=== PATIENT | female | born 1960 | race Caucasian/White ===

== ENCOUNTER 2019-05-05 07:47 | Outpatient (REF) | payer OTHER, SELFPAY ==
[2019-05-05 12:56] LABS: Chol HDL Ratio 5.03 mg/dL (0.0-4.40); Cholesterol 201 mg/dL (0-200); Glucose 87 mg/dL (65-115); HDL Cholesterol 40 mg/dL (60-100); LDL Cholesterol Calculated 119 mg/dL (50-129); LDL HDL Ratio 2.98 RATIO (0.00-3.22); Thyroid Stimulating Hormone 1.15 uIU/mL (0.27-4.20); Triglycerides 211 mg/dL (0-150)
[2019-05-05 13:20] LABS: Estmated Average Glucose 137; Hemoglobin A1C 6.4 % (4.0-6.0)
== END 2019-05-05 07:48 | disposition home or self-care (01) ==
LOC: LAB 07:47
PROVIDERS: Family Provider Family Medicine; PCP Family Medicine; Visit Provider Dermatology
DX: Z01.89 Encounter for other specified special examinations (principal)
CPT/HCPCS: 80061; 82947; 83036; 84443

== ENCOUNTER 2019-09-22 15:43 | Outpatient (CLI) | payer OTHER, SELFPAY ==
--- NOTE | 2019-09-22 | US_ITS ---
WS: [id number] THYROID ULTRASOUND HISTORY: LUMP, ANT NECK COMPARISON: None available. Right lobe: 4.6 cm x 1.5 cm x 1.5 cm. Volume: 5.6 cm3. Normal size and echotexture. No significant are dominant nodules are present. Left lobe: 4.6 cm x 1.7 cm x 1.5 cm. Volume: 6.4 cm3. Normal size gland. There are several hypoechoic nodules within the gland. The largest in the upper po le measures 1.3 x 0.8 cm. Nonspecific. No calcifications. No shadowing. Isthmus: 0.2 cm. US/US soft tissue head neck [id number] IMPRESSION: Indeterminate LEFT thyroid nodules. Recommend follow-up ultrasound in 6-12 josé miguel hs to document stability or change.
== END 2019-09-22 15:44 | disposition home or self-care (01) ==
LOC: US 15:45
PROVIDERS: Family Provider Family Medicine; PCP Family Medicine; Visit Provider Registered Nurse
DX: R22.1 Localized swelling, mass and lump, neck (principal); E04.2 Nontoxic multinodular goiter
CPT/HCPCS: 76536

== ENCOUNTER → 2019-11-30 07:54 | Outpatient (BNVA) | payer OTHER, SELFPAY | PROVIDERS: Family Provider Family Medicine; PCP Family Medicine; Referring Provider Registered Nurse; Visit Provider Internal Medicine | DX: E04.2 Nontoxic multinodular goiter (principal); I47.1 Supraventricular tachycardia | CPT/HCPCS: 99203 ==

== ENCOUNTER 2020-06-09 10:21 | Emergency (ER) | payer OTHER, SELFPAY ==
--- NOTE | 2020-06-09 10:22 | XRR_ITS ---
PROCEDURE INFORMATION: Exam: XR Chest Exam date and time: 06/09/2020 10:40 AM Age: 60 years old Clinical indication: Chest pain; Additional info: Cp TECHNIQUE: Imaging protocol: XR of the chest Views: 1 view. COMPARISON: CR Chest 1 [place] [id number] 08/14/2017 10:52 AM FINDINGS: Lungs: There is a small benign calcified granuloma in the right upper lobe. Otherwise the lungs are clear with no pneumonia. Pleural spaces: Unremarkable. No pleural effusion. No pneumothorax. Heart/Mediastinum: Unremarkable. No cardiomegaly. Bones/joints: Unremarkable. XR/XR chest 1V portable [id number] IMPRESSION: No acute findings.
--- NOTE | 2020-06-09 10:23 | ECG_ITS ---
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 Measurements Intervals Epps Rate: 86 P: 74 UT: 171 QRS: 50 QRSD: 86 T: 23 QT: 369 QTc: 443 Interpretive Statements SINUS RHYTHM POSSIBLE LEFT ATRIAL ENLARGEMENT [-0.1mV P WAVE IN V1/V2] SEPTAL MYOCARDIAL INFARCTION , OF INDETERMINATE AGE [40+ ms Q WAVE IN V1/V2] Compared to ECG 08/14/2017 13:12:37 Myocardial infarct finding now present T-wave abnormality no longer present Electronically Signed On 06-09-2020 22:42:37 CDT by Glenna Du M.D. [id number] [email or web address]
[2020-06-09 10:24] VITALS: BP 175/115; PULSE 88; RESP 22; TEMP 36.4; O2SAT 100; BMI 27.0
--- NOTE | 2020-06-09 10:35 | ED_ITS ---
Documented by User: Mg Barth MD 06/09/20 10:42 HPI - Chest Pain General: Chief Complaint: Chest Pain Stated Complaint: chest pain, L arm pain Time Seen by Provider: 06/09/20 10:22 Source: patient Mode of arrival: ambulatory Limitations: no limitations History of Present Illness: HPI narrative: 60-year-old female who states the last 2 days she has been having left-sided chest pain that radiates into her left jaw and her left arm. She states it got much worse this morning. States she has been under some increased stress as well. She had some mild shortness of breath. She denies any worsening improving factors. States her pain is currently a 2 out of 10 but was much worse earlier this morning. She is a history of high blood pressure and high cholesterol. She states she had a stress test 2 years ago and that was the last one she had and it was normal back then. Associated symptoms: Deny abdominal pain, dyspnea, fever(s), nausea or vomiting Review of Systems Const: Denies: fever(s), chills, body aches or change in appetite Eyes: Denies: blurry vision or eye discomfort ENMT: Denies: throat pain or dental pain Card: Reports: chest pain Resp: Denies: dyspnea GI: Denies: abdominal pain, nausea, vomiting or diarrhea : Denies: dysuria Musc: Denies: neck pain or back pain Skin/Breast: Denies: rash Neuro: Denies: headache(s) Psych: Denies: depression Ronald/Lymph: Denies: easy bruising All/Imm: Denies: urticaria PFSH ED PFSH: Medical History (Updated 06/09/20 @ 13:34 by Taqueria Boyer DO) Chest pain HTN (hypertension) SVT (supraventricular tachycardia) Family History Father CAD (coronary artery disease) Other Cancer Social History Smoking and tobacco status: never smoked Alcohol intake: never Physical Exam Const: COMMON NORMALS: no acute distress, patient oriented x3 and healthy appearing HENMT: COMMON NORMALS: normocephalic and atraumatic HEAD & SCALP: normocephalic and atraumatic Eye: COMMON NORMALS: Equal, round and reactive pupils present and EOMs intact bilaterally PUPIL: Yes Equal, round and reactive pupils present Neck/C-Spine: COMMON NORMALS: full ROM and supple Chest: COMMONS NORMALS: normal inspection of the chest and normal palpation of entire chest wall Resp: COMMON NORMALS: normal respiratory effort, No retractions, No use of accessory muscles and clear to auscultation bilaterally AUSCULTATION: clear to auscultation bilaterally Cardio: COMMON NORMALS: regular rate, regular rhythm and No murmurs present (Cardio) RATE: regular rate RHYTHM: regular rhythm GI: COMMON NORMALS: Normal to inspection, nondistended, normoactive bowel sounds present, Soft to palpation, non-tender and no masses PALPATION: Yes Soft to palpation Extremity: COMMON NORMALS: normal to inspection and full ROM Neuro: COMMON NORMALS: patient oriented x3, moves all extremities and no focal motor deficits Psych: COMMON NORMALS: mental status grossly normal, Normal thought process present and cooperative THOUGHT PROCESS: Normal thought process present Skin: COMMON NORMALS: no rashes or lesions noted and no wounds GENERAL SKIN EXAM: no rashes or lesions noted Course Vital Signs: Vital signs: Vital Signs Temperature 97.5 F L 06/09/20 10:24 Pulse Rate 70 06/09/20 13:45 Respiratory Rate 15 06/09/20 13:45 Blood Pressure 104/77 06/09/20 13:45 Pulse Oximetry 94 06/09/20 13:45 MDM - Chest Pain Lab Data: Labs: Lab Results 06/09/20 06/09/20 06/09/20 Range/Units 10:40 10:40 10:40 WBC 6.8 (4.0-10.0) 10^3/ uL RBC 5.35 H (4.1-5.3) 10^6/u L Hgb 15.9 H (11.5-15.3) g/dL Hct 49.1 H (37.0-47.0) % MCV 91.8 (81-99) fL MCH 29.7 (28.0-34.0) pg MCHC 32.4 (30.0-36.0) g/dL RDW 12.5 (12.1-15.1) % Plt Count 194 (130-400) 10^3/c mm MPV 12.0 H (7.4-10.4) fL Neut % (Auto) 71.4 % Lymph % (Auto) 19.1 % Hardin % (Auto) 6.8 % Eos % (Auto) 1.8 % Baso % (Auto) 0.6 % Neut # (Auto) 4.84 (1.8-7.7) 10^3/u L Lymph # (Auto) 1.3 (0.8-4.8) 10^3/u L Hardin # (Auto) 0.5 (0.2-0.9) 10^3/u L Eos # (Auto) 0.1 (0.0-0.8) 10^3/u L Baso # (Auto) 0.0 (0.0-0.1) 10^3/u L Nucleated RBC % (a uto) 0 % Nucleated RBCs # 0.0 /100WBC D-Dimer (0-0.59) ug/mIFE U Sodium 139 (136-145) mmol/L Potassium 3.6 (3.5-5.1) mmol/L Chloride 99 (98-107) mmol/L Carbon Dioxide 24 (22-29) mmol/L Anion Gap 19.6 H (5-19) BUN 26 H (8-23) mg/dL Creatinine 0.7 (0.5-0.9) mg/dL GFR Calculation 85.1 L (90-130) mL/min Glucose 93 (65-115) mg/dL Calculated Osmolal ity 292 (285-295) mOsm/k g Calcium 9.7 (8.5-10.5) mg/dL Total Bilirubin 0.6 (0.15-1.2) mg/dL AST 20 (0-32) U/L ALT 16 (0-33) U/L Alkaline Phosphata se 98 (35-105) IU/L Troponin T Baselin e 6 (0-10) ng/L Troponin T 120 Min [place] (0-10) ng/L Delta Troponin T (0-10) ABS# Total Protein 7.6 (6.6-8.7) g/dL Albumin 4.7 (3.5-5.2) g/dL Globulin 2.9 (1.3-4.6) g/dL 06/09/20 06/09/20 Range/Units 12:14 12:32 WBC (4.0-10.0) 10^3/ uL RBC (4.1-5.3) 10^6/u L Hgb (11.5-15.3) g/dL Hct (37.0-47.0) % MCV (81-99) fL MCH (28.0-34.0) pg MCHC (30.0-36.0) g/dL RDW (12.1-15.1) % Plt Count (130-400) 10^3/c mm MPV (7.4-10.4) fL Neut % (Auto) % Lymph % (Auto) % Hardin % (Auto) % Eos % (Auto) % Baso % (Auto) % Neut # (Auto) (1.8-7.7) 10^3/u L Lymph # (Auto) (0.8-4.8) 10^3/u L Hardin # (Auto) (0.2-0.9) 10^3/u L Eos # (Auto) (0.0-0.8) 10^3/u L Baso # (Auto) (0.0-0.1) 10^3/u L Nucleated RBC % (a uto) % Nucleated RBCs # /100WBC D-Dimer <= 0.27 (0-0.59) ug/mIFE U Sodium (136-145) mmol/L Potassium (3.5-5.1) mmol/L Chloride (98-107) mmol/L Carbon Dioxide (22-29) mmol/L Anion Gap (5-19) BUN (8-23) mg/dL Creatinine (0.5-0.9) mg/dL GFR Calculation (90-130) mL/min Glucose (65-115) mg/dL Calculated Osmolal ity (285-295) mOsm/k g Calcium (8.5-10.5) mg/dL Total Bilirubin (0.15-1.2) mg/dL AST (0-32) U/L ALT (0-33) U/L Alkaline Phosphata se (35-105) IU/L Troponin T Baselin e (0-10) ng/L Troponin T 120 Min [place] 6.00 (0-10) ng/L Delta Troponin T 0 (0-10) ABS# Total Protein (6.6-8.7) g/dL Albumin (3.5-5.2) g/dL Globulin (1.3-4.6) g/dL EKG Data^: EKG 1: Attestation: I personally reviewed and interpreted this EKG as follows: EKG interpretation date: 06/09/20 EKG interpretation time: 10:31 Interpretation: nsr hr [address] or t wave abnormalities qrs 86 qtc 413 Discharge Plan Discharge Patient Disposition: Home Clinical Impression: Atypical chest pain, HTN (hypertension), Chest pain due to GERD Condition: Stable Prescriptions: New pantoprazole 40 mg tablet,delayed release (DR/EC) 40 mg PO DAILY 56 Days RF: 0 No Action cholecalciferol (vitamin D3) 25 mcg (1,000 unit) capsule 25 mcg PO DAILY@ RF: 0 potassium chloride 10 mEq tablet,ER particles/crystals 10 meq PO BID RF: 0 simvastatin 40 mg tablet 40 mg PO DAILY@2099 RF: 0 aspirin [Adult Low Dose Aspirin] 81 mg tablet,delayed release (DR/EC) 81 mg PO DAILY@ RF: 0 ibuprofen 800 mg tablet 800 mg PO Q6H PRN (Reason: Pain) RF: 0 ascorbic acid (vitamin C) 500 mg capsule 500 mg PO DAILY@ RF: 0 cyclobenzaprine 10 mg tablet 10 mg PO BEDTIME PRN (Reason: Pain) RF: 0 magnesium oxide 250 mg magnesium tablet 250 mg PO BID@ RF: 0 citalopram 10 mg Tablet 10 mg PO DAILY@ RF: 0 hydrochlorothiazide 25 mg Tablet 25 mg PO DAILY PRN (Reason: Blood Pressure) RF: 0 amlodipine 5 mg tablet 5 mg PO DAILY@ RF: 0 metoprolol succinate 25 mg tablet extended release 24 hr 12.5 mg PO DAILY@2099 RF: 0 Discharge Orders: Discharge ED (Routine); Ordered 06/09/20 Ordered By: Taqueria Boyer Referrals: Brinda Sherwood DO [Primary Care Provider] - Discharge Diet: Usual diet Discharge Activity: Increase activity as tolerated Patient Instructions: Opioid Safety Activity Restrictions/Additional Instructions: Case management will help you arrange for a 48-hour Holter monitor as well as a Lexiscan sestamibi stress test. Sign Out Sign Out Data: Patient Sign Out occurred on 06/09/20 at 13:11. Patient's care was discussed, and care was transferred from to Taqueria Boyer DO. Coding Level of Care Code ED Filling Station Equipment Mechanic for Chg Fwd Exam Comprehensive Documented by User: Taqueria Boyer DO 06/09/20 14:02 HPI - Chest Pain General: Chief Complaint: Chest Pain Stated Complaint: chest pain, L arm pain Time Seen by Provider: 06/09/20 10:22 PFSH ED PFSH: Medical History (Updated 06/09/20 @ 13:34 by Taqueria Boyer DO) Chest pain HTN (hypertension) SVT (supraventricular tachycardia) Family History Father CAD (coronary artery disease) Other Cancer Social History Smoking and tobacco status: never smoked Alcohol intake: never Course Vital Signs: Vital signs: Vital Signs Temperature 97.5 F L 06/09/20 10:24 Pulse Rate 70 06/09/20 13:45 Respiratory Rate 15 06/09/20 13:45 Blood Pressure 104/77 06/09/20 13:45 Pulse Oximetry 94 06/09/20 13:45 MDM - Chest Pain MDM Narrative: Medical decision making narrative: Patient is feeling well no further chest pain. Talking to her she had multiple episodes this in the past going back months several years. 3 times she had a stress test that were negative last one being about 6 years ago. Also mentioned at times she gets rapid heart rate with activity that resolves at rest. We will start her on a PPI and is set her up for a 48-hour Holter monitor and refer her for a another Lexiscan sestamibi stress test. She is already taking baby aspirin if he has recurrence of symptoms that are sustained return Lab Data: Labs: Lab Results 06/09/20 06/09/20 06/09/20 Range/Units 10:40 10:40 10:40 WBC 6.8 (4.0-10.0) 10^3/ uL RBC 5.35 H (4.1-5.3) 10^6/u L Hgb 15.9 H (11.5-15.3) g/dL Hct 49.1 H (37.0-47.0) % MCV 91.8 (81-99) fL MCH 29.7 (28.0-34.0) pg MCHC 32.4 (30.0-36.0) g/dL RDW 12.5 (12.1-15.1) % Plt Count 194 (130-400) 10^3/c mm MPV 12.0 H (7.4-10.4) fL Neut % (Auto) 71.4 % Lymph % (Auto) 19.1 % Hardin % (Auto) 6.8 % Eos % (Auto) 1.8 % Baso % (Auto) 0.6 % Neut # (Auto) 4.84 (1.8-7.7) 10^3/u L Lymph # (Auto) 1.3 (0.8-4.8) 10^3/u L Hardin # (Auto) 0.5 (0.2-0.9) 10^3/u L Eos # (Auto) 0.1 (0.0-0.8) 10^3/u L Baso # (Auto) 0.0 (0.0-0.1) 10^3/u L Nucleated RBC % (a uto) 0 % Nucleated RBCs # 0.0 /100WBC D-Dimer (0-0.59) ug/mIFE U Sodium 139 (136-145) mmol/L Potassium 3.6 (3.5-5.1) mmol/L Chloride 99 (98-107) mmol/L Carbon Dioxide 24 (22-29) mmol/L Anion Gap 19.6 H (5-19) BUN 26 H (8-23) mg/dL Creatinine 0.7 (0.5-0.9) mg/dL GFR Calculation 85.1 L (90-130) mL/min Glucose 93 (65-115) mg/dL Calculated Osmolal ity 292 (285-295) mOsm/k g Calcium 9.7 (8.5-10.5) mg/dL Total Bilirubin 0.6 (0.15-1.2) mg/dL AST 20 (0-32) U/L ALT 16 (0-33) U/L Alkaline Phosphata se 98 (35-105) IU/L Troponin T Baselin e 6 (0-10) ng/L Troponin T 120 Min [place] (0-10) ng/L Delta Troponin T (0-10) ABS# Total Protein 7.6 (6.6-8.7) g/dL Albumin 4.7 (3.5-5.2) g/dL Globulin 2.9 (1.3-4.6) g/dL 06/09/20 06/09/20 Range/Units 12:14 12:32 WBC (4.0-10.0) 10^3/ uL RBC (4.1-5.3) 10^6/u L Hgb (11.5-15.3) g/dL Hct (37.0-47.0) % MCV (81-99) fL MCH (28.0-34.0) pg MCHC (30.0-36.0) g/dL RDW (12.1-15.1) % Plt Count (130-400) 10^3/c mm MPV (7.4-10.4) fL Neut % (Auto) % Lymph % (Auto) % Hardin % (Auto) % Eos % (Auto) % Baso % (Auto) % Neut # (Auto) (1.8-7.7) 10^3/u L Lymph # (Auto) (0.8-4.8) 10^3/u L Hardin # (Auto) (0.2-0.9) 10^3/u L Eos # (Auto) (0.0-0.8) 10^3/u L Baso # (Auto) (0.0-0.1) 10^3/u L Nucleated RBC % (a uto) % Nucleated RBCs # /100WBC D-Dimer <= 0.27 (0-0.59) ug/mIFE U Sodium (136-145) mmol/L Potassium (3.5-5.1) mmol/L Chloride (98-107) mmol/L Carbon Dioxide (22-29) mmol/L Anion Gap (5-19) BUN (8-23) mg/dL Creatinine (0.5-0.9) mg/dL GFR Calculation (90-130) mL/min Glucose (65-115) mg/dL Calculated Osmolal ity (285-295) mOsm/k g Calcium (8.5-10.5) mg/dL Total Bilirubin (0.15-1.2) mg/dL AST (0-32) U/L ALT (0-33) U/L Alkaline Phosphata se (35-105) IU/L Troponin T Baselin e (0-10) ng/L Troponin T 120 Min [place] 6.00 (0-10) ng/L Delta Troponin T 0 (0-10) ABS# Total Protein (6.6-8.7) g/dL Albumin (3.5-5.2) g/dL Globulin (1.3-4.6) g/dL Discharge Plan Discharge Patient Disposition: Home Clinical Impression: Atypical chest pain, HTN (hypertension), Chest pain due to GERD Condition: Stable Prescriptions: New pantoprazole 40 mg tablet,delayed release (DR/EC) 40 mg PO DAILY 56 Days RF: 0 No Action cholecalciferol (vitamin D3) 25 mcg (1,000 unit) capsule 25 mcg PO DAILY@ RF: 0 potassium chloride 10 mEq tablet,ER particles/crystals 10 meq PO BID RF: 0 simvastatin 40 mg tablet 40 mg PO DAILY@2099 RF: 0 aspirin [Adult Low Dose Aspirin] 81 mg tablet,delayed release (DR/EC) 81 mg PO DAILY@ RF: 0 ibuprofen 800 mg tablet 800 mg PO Q6H PRN (Reason: Pain) RF: 0 ascorbic acid (vitamin C) 500 mg capsule 500 mg PO DAILY@ RF: 0 cyclobenzaprine 10 mg tablet 10 mg PO BEDTIME PRN (Reason: Pain) RF: 0 magnesium oxide 250 mg magnesium tablet 250 mg PO BID@ RF: 0 citalopram 10 mg Tablet 10 mg PO DAILY@ RF: 0 hydrochlorothiazide 25 mg Tablet 25 mg PO DAILY PRN (Reason: Blood Pressure) RF: 0 amlodipine 5 mg tablet 5 mg PO DAILY@ RF: 0 metoprolol succinate 25 mg tablet extended release 24 hr 12.5 mg PO DAILY@2099 RF: 0 Discharge Orders: Discharge ED (Routine); Ordered 06/09/20 Ordered By: Taqueria Boyer Referrals: Brinda Sherwood DO [Primary Care Provider] - Discharge Diet: Usual diet Discharge Activity: Increase activity as tolerated Patient Instructions: Opioid Safety Activity Restrictions/Additional Instructions: Case management will help you arrange for a 48-hour Holter monitor as well as a Lexiscan sestamibi stress test. Sign Out Sign Out Data: Patient Sign Out occurred on 06/09/20 at 13:11. Patient's care was discussed, and care was transferred from to Taqueria Boyer DO. Coding Level of Care Code ED Filling Station Equipment Mechanic for Chg Fwd Exam Comprehensive
[2020-06-09 10:46] VITALS: BP 121/70; PULSE 75; RESP 18; O2SAT 98
[2020-06-09] MEDS: aspirin 81 mg Chew Tablet 324 MG PO (10:55)
[2020-06-09] MEDS: nitroglycerin 0.4 mg sublingual Tablet SUBLINGUAL (10:55)
[2020-06-09 11:01] LABS: Basophils % 0.6 %; Eosinophils # 0.1 10^3/uL (0.0-0.8); Eosinophils % 1.8 %; Hematocrit 49.1 % (37.0-47.0); Hemoglobin 15.9 g/dL (11.5-15.3); Lymphocytes # 1.3 10^3/uL (0.8-4.8); Lymphocytes % 19.1 %; Mean Corpuscular HGB Conc 32.4 g/dL (30.0-36.0); Mean Corpuscular Hemoglobin 29.7 pg (28.0-34.0); Mean Corpuscular Volume 91.8 fL (81-99); Monocytes # 0.5 10^3/uL (0.2-0.9); Monocytes % 6.8 %; Neutrophils # 4.84 10^3/uL (1.8-7.7); Neutrophils % 71.4 %; Nucleated Red Blood Cells % 0 %; Platelet Count 194 10^3/cmm (130-400); Red Blood Count 5.35 10^6/uL (4.1-5.3); Red Cell Distribution Width 12.5 % (12.1-15.1); White Blood Count 6.8 10^3/uL (4.0-10.0)
[2020-06-09 11:19] LABS: Troponin(5th) Baseline 6 ng/L (0-10)
[2020-06-09 12:22] VITALS: BP 120/86; PULSE 65; RESP 21; O2SAT 94
--- NOTE | 2020-06-09 12:23 | ECG_ITS ---
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 Measurements Intervals Luther Rate: 72 P: 67 NJ: 169 QRS: 44 QRSD: 89 T: 30 QT: 397 QTc: 435 Interpretive Statements SINUS RHYTHM POSSIBLE LEFT ATRIAL ENLARGEMENT [-0.1mV P WAVE IN V1/V2] NONSPECIFIC ST & T-WAVE ABNORMALITY Compared to ECG 06/09/2020 10:31:24 T-wave abnormality now present Myocardial infarct finding no longer present Electronically Signed On 06-09-2020 22:52:26 CDT by Glenna Du M.D. [id number]
[2020-06-09 12:32] LABS: Alanine Aminotransferase 16 U/L (0-33); Albumin Level 4.7 g/dL (3.5-5.2); Alkaline Phosphatase 98 IU/L (35-105); Blood Urea Nitrogen 26 mg/dL (8-23); Calcium 9.7 mg/dL (8.5-10.5); Carbon Dioxide 24 mmol/L (22-29); Chloride 99 mmol/L (98-107); Globulin 2.9 g/dL (1.3-4.6); Glomerular Filtration Rate 85.1 mL/min (90-130); Glucose 93 mg/dL (65-115); Osmolality Calculated 292 mOsm/kg (285-295); Sodium 139 mmol/L (136-145); Total Bilirubin 0.6 mg/dL (0.15-1.2); Total Protein 7.6 g/dL (6.6-8.7)
[2020-06-09 12:46] LABS: D Dimer <= 0.27 ug/mIFEU (0-0.59)
[2020-06-09 13:02] LABS: Anion Gap 19.6 (5-19); Aspartate Amino Transferase 20 U/L (0-32); Potassium 3.6 mmol/L (3.5-5.1)
[2020-06-09 13:04] LABS: Troponin 5 2HR Delta 0 ABS# (0-10)
[2020-06-09 13:45] VITALS: BP 104/77; PULSE 70; RESP 15; O2SAT 94
--- NOTE | 2020-06-10 13:53 | DCPLANNER ---
client relationship manager had message to schedule an outpatient stress test for patient and a followup at [facility] for a halter monitor. client relationship manager faxed signed order to centralized scheduling for stress test. client relationship manager will call for appointment information. client relationship manager faxed signed order for halter monitor to [facility], case work aide will call for appointment information. Centralized scheduling and [facility] will call patient with appointment information.
--- NOTE | 2020-06-12 10:42 | DCPLANNER ---
Patient has a follow up appointment scheduled for , June 13, 2020 at 3:30 at heart care for a holter monitor. [facility] will call patient with appointment information.
--- NOTE | 2020-06-14 11:43 | DCPLANNER ---
Patient had a follow up appointment scheduled for 06.13.20 at [facility] for a holter monitor - patient did attend appointment.
--- NOTE | 2020-06-28 13:35 | DCPLANNER ---
business banking manager was contacted by centralized scheduling that the stress test ordered out of the ER is requiring a peer to peer by the insurance. business banking manager called patient at phone number [phone], unable to speak with patient at this time and unable to leave a voicemail for patient, to let patient know that she would need to followup with primary care physician to have stress test ordered.
== END 2020-06-09 13:52 | disposition home or self-care (01) ==
PROVIDERS: Emergency Medicine; Emergency Provider Family Medicine; PCP Family Medicine
DX: R07.89 Other chest pain (principal); I10 Essential (primary) hypertension; K21.9 Gastro-esophageal reflux disease without esophagitis; Z79.82 Long term (current) use of aspirin
CPT/HCPCS: 36415; 71045; 80053; 84484; 85025; 85378; 93005; 99283

== ENCOUNTER 2021-07-02 11:51 | Outpatient (CLI) | payer OTHER, SELFPAY ==
[2021-07-02 12:10] VITALS: BMI 28.5
--- NOTE | 2021-07-02 12:20 | ECG_ITS ---
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 Interpretive Statements NAME OF STUDY: TREADMILL STRESS TEST INDICATION: Chest Pain Baseline blood pressure of 140/87 mm Hg, heart rate of 73 beats per minute and oxygen saturation of 96%. EKG showed normal sinus rhythm, normal axis with nonspecific ST depression. The patient exercised for 6 minutes 54 seconds on a standard Olayinka protocol. Patient attained a maximum heart rate of 159 beats per minute(100% of the maximum predicted heart rate) with a blood pressure at the peak exercise of 205/97 mm Hg and oxygen saturation 96%. The EKG at the peak exercise revealed sinus tachycardia with no significant ST-T wave changes. Patient did not have any chest pain or any significant arrhythmis with the exercise. Isolated frequent PVCs noted during stage I and II of exercise. During the recovery phase, there were no new changes. Blood pressure at the end of the recovery phase was 136/90 mm Hg with a heart rate of 99 beats per minute and oxygen saturation 96%. CONCLUSION: 1. Normal EKG response to treadmill exercise. 2. No exercise-induced chest pain or cardiac arrhythmia. 3. Excellent exercise tolerance for age, attained a maximum of 10.2 METs. Maximum VO2 of 35.7 mL/kg/min. 4. Baseline hypertension with normal response to exercise. 5. Delgado treadmill score of ~7, suggestive of low risk. Electronically Signed On 07-02-2021 19:25:36 CDT by Chichi Mckay M.D. [email or web address] [email or web address]store/[id number]
[2021-07-02 13:10] VITALS: BP 136/72; PULSE 99
== END 2021-07-02 11:52 | disposition home or self-care (01) ==
LOC: CDL 11:51
PROVIDERS: PCP Family Medicine; Visit Provider Internal Medicine Cardiovascular Disease
DX: R07.9 Chest pain, unspecified (principal); I10 Essential (primary) hypertension
CPT/HCPCS: 93017

== ENCOUNTER 2022-07-16 06:18 | Outpatient (CLI) | payer OTHER, SELFPAY ==
--- NOTE | 2022-07-16 | ECG_ITS ---
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 Interpretive Statements NAME OF STUDY: EXERCISE SESTAMIBI STRESS TEST INDICATION: [Angina; Syncope] EXERCISE DATA: The patient was exercised by Olayinka protocol. Baseline heart rate was 65 beats per minute. Baseline blood pressure was 145/89 millimeters of mercury. Target heart rate was 133 beats per minute. Maximum heart rate achieved was 146, which was 109% of the target heart rate. Maximum blood pressure was 225/102 millimeters of mercury. Total exercise time was 5 minutes and 4 seconds. Maximum METs achieved was 7. The reason for ending the test was completion of the protocol. The patient complained of shortness of breath during the stress test, which then resolved at the end of the test. ELECTROCARDIOGRAM: BASELINE: Showed sinus rhythm, normal axis, no significant ST-T changes at the baseline noted. [] EXERCISE: At the peak exercise level, [] No significant ST-T changes suggestive of ischemia noted. [] RECOVERY: During the recovery period, heart rate dropped appropriately. No significant ST-T changes in the recovery suggestive of ischemia noted. [] CONCLUSION: 1. Exercise capacity is fair 2. Heart rate response was appropriate. 3. Blood pressure response was hypertensive 4. Symptoms not suggestive of ischemia. 5. Electrocardiogram portion of the stress test was not suggestive of ischemia. 6. Nuclear scan will be documented separately. Electronically Signed On 08-03-2022 10:47:55 CDT by Dexter Hampton M.D. [id number]
[2022-07-16 06:28] VITALS: BMI 29.7
--- NOTE | 2022-07-16 06:30 | NMCV_ITS ---
NM collins perf SPECT r/s* [id number] Nhung Davison Age: 62 Gender: F : 1960 Exam Date: 07/16/2022 07:18 Ordering Phys: Sue Barron Technologist: JUAREZ Peoples Exam Location: [facility] Indications: CHEST PAIN, TACHYCARDIA, ISCHEMIC HEART DISEASE, HYPERTENSION STRESS TEST Please [facility] IMAGE PROTOCOL Rest/Stress 1 Exercise Day Radiopharmaceutical Dose (mCi) Administration Site Administered by Rest: Tc-99m 10.6 IV JUAREZ Patel Sestamibi Stress:Tc-99m 32.7 IV JUAREZ Patel Sestamibi Rest: 16-Jul-2022 60 Discovery 630 Stress: 16-Jul-2022 30 Discovery 630 Radiopharmaceutical was injected at 85 % maximum heart rate. Images obtained in supine and prone position. SPECT RESULTS Technical Quality: Excellent Raw Data Analysis: Normal Image Corrections: No attenuation or motion correction applied Summed Stress Score: 4 Summed Rest Score: 0 Summed Difference Score: 4 PERFUSION FINDINGS There is small in size, reversible perfusion defect noted in the inferolateral wall. This is consistent with small area of ischemia in the left circumflex artery territory. FUNCTIONAL RESULTS (calculated via Gated SPECT) Stress Image LV EF (%): 74 Stress EDV (mL):106 TID: 0.94 Stress ESV (mL):28 FUNCTIONAL FINDINGS: There is normal left ventricular systolic function. IMPRESSIONS 1. Small sized area of ischemia noted in the left circumflex artery territory 2. LV systolic function is normal Dexter Hampton MD (Electronically Signed) Final Date: 16 July 2022 11:24 S
[2022-07-16 08:23] VITALS: BP 146/92; PULSE 80
== END 2022-07-16 06:19 | disposition home or self-care (01) ==
PROVIDERS: PCP Family Medicine; Visit Provider Nurse Practitioner Family
DX: R55 Syncope and collapse (principal); R94.39 Abnormal result of other cardiovascular function study; R07.9 Chest pain, unspecified; Z82.49 Family history of ischemic heart disease and other diseases of the circulatory system; I10 Essential (primary) hypertension; I99.8 Other disorder of circulatory system
CPT/HCPCS: 36415; 78452; 93017; A9500

== ENCOUNTER 2022-07-24 13:06 | Outpatient (CLI) | payer OTHER, SELFPAY ==
--- NOTE | 2022-07-24 13:14 | MM_ITS ---
WS: [id number] BILATERAL 3D TOMOSYNTHESIS DIGITAL SCREENING MAMMOGRAPHY WITH CAD CLINICAL INFORMATION: SCREENING HISTORY: Screening mammogram. No current complaints. COMPARISON: 2017 TECHNIQUE: Bilateral CC and MLO views. FINDINGS: The breasts are composed of heterogeneous fibroglandular density tissue, which can limit the detectio n of small underlying mass lesions. No suspicious mass, asymmetry, calcifications, or architectural d istortion. No evidence of malignancy. Vascular calcifications. Incidental punctate and lucent centere d calcifications. MM/[place] [id number] IMPRESSION: BI-RADS: 2-Benign FOLLOW UP: 1 Year Follow-up Recommend return to annual screening mammography.
== END 2022-07-24 13:07 | disposition home or self-care (01) ==
LOC: RAD 13:08
PROVIDERS: PCP Family Medicine; Visit Provider Nurse Practitioner Family
DX: Z12.31 Encounter for screening mammogram for malignant neoplasm of breast (principal)
CPT/HCPCS: 77063; 77067

== ENCOUNTER 2022-07-31 16:51 | Outpatient (CLI) | payer OTHER, SELFPAY ==
[2022-07-31 19:37] LABS: INR 0.88 (0.83-1.21); Prothrombin Time (Patient) 12.1 Seconds (12.0-15.1)
[2022-07-31 19:41] LABS: Basophils # 0.1 10^3/uL (0.0-0.1); Basophils % 0.7 %; Eosinophils # 0.4 10^3/uL (0.0-0.8); Eosinophils % 5.1 %; Hematocrit 45.7 % (37.0-47.0); Hemoglobin 14.6 g/dL (11.5-15.3); Lymphocytes # 1.4 10^3/uL (0.8-4.8); Mean Corpuscular HGB Conc 31.9 g/dL (30.0-36.0); Mean Corpuscular Hemoglobin 29.8 pg (28.0-34.0); Mean Corpuscular Volume 93.3 fl (81-99); Mean Platelet Volume 11.6 fL (7.4-10.4); Monocytes # 0.5 10^3/uL (0.2-0.9); Monocytes % 7.7 %; Neutrophils # 4.58 10^3/uL (1.8-7.7); Neutrophils % 66.2 %; Nucleated Red Blood Cells % 0 %; Platelet Count 204 10^3/cmm (130-400); Red Cell Distribution Width 13.2 % (12.1-15.1); White Blood Count 6.9 10^3/uL (4.0-10.0)
[2022-07-31 20:01] LABS: Anion Gap 13.6 (5-19); Blood Urea Nitrogen 24 mg/dL (8-23); Carbon Dioxide 29 mmol/L (22-29); Chloride 101 mmol/L (98-107); Glucose 87 mg/dL (65-115); NT Pro B Type Natriuretic Pept 36 pg/mL (0-125); Osmolality Calculated 293 mOsm/kg (285-295); Potassium 3.6 mmol/L (3.5-5.1); Sodium 140 mmol/L (136-145)
== END 2022-07-31 16:52 | disposition home or self-care (01) ==
PROVIDERS: PCP Family Medicine; Visit Provider Nurse Practitioner Family
DX: I10 Essential (primary) hypertension (principal); I47.1 Supraventricular tachycardia; R07.9 Chest pain, unspecified; Z82.49 Family history of ischemic heart disease and other diseases of the circulatory system
CPT/HCPCS: 36415; 80048; 83880; 85025; 85610

== ENCOUNTER 2022-08-05 05:58 | Outpatient (CLI) | payer OTHER, SELFPAY ==
[2022-08-05] VITALS (17 sets, daily range): BP systolic 122–144; BP diastolic 74–111; PULSE 67–94; RESP 13–25; TEMP 37.6; O2SAT 90–94; BMI 29.7
[2022-08-05] MEDS: diphenhydrAMINE 50 mg Capsule PO (06:30)
[2022-08-05 06:40] LABS: Basophils % 0.3 %; Eosinophils # 0.1 10^3/uL (0.0-0.8); Eosinophils % 1.8 %; Hematocrit 40.8 % (37.0-47.0); Hemoglobin 13.3 g/dL (11.5-15.3); Lymphocytes # 0.8 10^3/uL (0.8-4.8); Lymphocytes % 13.7 %; Mean Corpuscular HGB Conc 32.6 g/dL (30.0-36.0); Mean Corpuscular Volume 91.9 fl (81-99); Mean Platelet Volume 11.2 fL (7.4-10.4); Monocytes # 0.7 10^3/uL (0.2-0.9); Neutrophils # 4.44 10^3/uL (1.8-7.7); Nucleated Red Blood Cells % 0 %; Platelet Count 146 10^3/cmm (130-400); Red Blood Count 4.44 10^6/uL (4.1-5.3); Red Cell Distribution Width 13.2 % (12.1-15.1); White Blood Count 6.1 10^3/uL (4.0-10.0)
--- NOTE | 2022-08-05 07:00 | XACV_ITS ---
Exam Room: 2 Ht: 175 cm Wt: 91 kg BSA: 2.13 m2 Gender: Female : 1960 Any Known Allergies: Other Exam Priority: Routine Procedure(s): Procedure Description: Diagnostic procedure Procedure Description: Left Heart Catheterization Procedure Description: Left ventriculography Procedure Description: Coronary Angiography Harman ALBARADO; Diagnostic Cath Status: Elective Diagnostic Findings * INDICATION: 62-year-old woman with medical attention has been having on and off chest pain episodes and significant dyspnea on exertion. She is underwent stress test that showed ischemia in left circumflex artery territory. Plan for coronary angiogram with possible percutaneous coronary intervention. * No significant disease noted in the Left Main, Left Anterior Descending, Right, or Circumflex coronary arteries. * Coronary angiography shows right dominance. PCI Status: Elective Conclusions 1. No significant disease noted in the Left Main, Left Anterior Descending, Right, or Circumflex coronary arteries. 2. Normal left ventricular systolic function. Ejection fraction of 55%. Recommendations * Aggressive risk factor modification. * Outpatient cardiology follow up in 4 weeks. Interventional RX Recommendation: medical therapy and/or counseling Diagnostic RX Recommendation: medical therapy and/or counseling Anticoagulation: Heparin Ventriculography Ejection Fraction: 55.0 % Pressures Phase:Rest AO : 103 / 87 ( 94 ) @ 8:38:00 AM 105 / 57 ( 78 ) @ 8:46:00 AM 105 / 57 ( 79 ) @ 8:46:00 AM LV : 130 / -9 / 17 @ 8:44:00 AM 117 / -15 / 9 @ 8:45:00 AM 120 / -16 / 8 @ 8:46:00 AM Valves Phase:DefaultPhase AV : 15.0 @ 7:53:35 AM 15.0 @ 7:53:35 AM AV Mean Gradient: 11.0 @ 7:53:35 AM Clinical Evaluation EBL: 5mL-10mL Procedural Details Procedure Consent Obtained. Admit Source: Out Patient. Pre-Procedure Time Out. Identified patient by full name and date of as verbalized by the patient/guarantor. Does the consent match the physician's order: Yes. Accurate & Complete Informed Consent: Yes. Inpatient/Outpatient History & Physical on Chart: Yes. If H&P is completed, is and addenduem needed: No; If yes, is the addendum complete: N/A. Visualize and Verify Site with Patient/Guarantor: N/A. Relevant Radiology Images available: N/A. The risks, benefits, and alternatives of sedation and/or procedure were discussed by physician. The patient agrees to continue. Procedure started. [facility] Clinical Fraility Score: 3: Managing Well. Laser Engineer Indications: Worsening Angina. Chest Pain Symptom Assessment: Typical Angina Symptoms. Current diagnosis: Chest Pain/abnormal stress test. Correct patient, site and procedure confirmed by cath team. PERRLA. Strong, equal hand piece dyer bilaterally. Lungs clear x 5 lobes. IV Site on Arrival: 20 gauge in the right anticubital. IV Fluids: 0.9% NaCl at KVO. 0 mL infused prior to cathode builder. Pre Procedural Pulses: bilateral radial was 3+. Pre Procedural Pulses: bilateral posterior tibial was 1+. Pre Procedural Pulses: bilateral dorsalis pedis was 3+. Oxygen started at 0liters/min via nasal canula. right groin was prepped with chloroprep then draped in the usual sterile fashion. right radial was prepped with chloroprep then draped in the usual sterile fashion. Baseline sample Acquired. HR: 80 BPM. Physician notified. Physician arrived. Physician scrubbed in. Immediate Pre-Procedure Time Out. Correct Patient: Yes; Correct Procedure: Yes; Correct Site: Yes; Correct Patient Position: Yes; Correct Supplies: Yes; Dried Flammable Prep: Yes; Blood Products Available: N/A;. Lidocaine 1% infiltrated to the right radial. Arterial access obtained. A 5 moldovan TIG catheter in over wire. Multiple views taken of left coronary artery. Catheter redirected to the RCA. Multiple views taken of right coronary artery. Catheter out. A 5 moldovan Angled Pig catheter in over wire. EDP Sample taken: LV 130/-10,17; HR: 81 BPM; SpO2: 94%. LV gram performed in JERNIGAN @ 10 mL/second for a total of 30 mL. EDP Sample taken: LV 117/-16,9; HR: 81 BPM; SpO2: 94%. Pullback taken: LV 120/-17,8; AO 105/57(78); Mean: 11mmHg, Peak to Peak: 15mmHg, SEP: 22sec/min; HR: 79 BPM; SpO2: 94%. Catheter out. Post Procedure: Pulses reassessed and unchanged. PERRLA. Strong, equal hand piece dyer bilaterally. No VTE prophylaxis required. Medication's Wasted: Lidocaine 1% = 2 mL. Medication's Wasted: Nitro = 49.8 mg. Medication's Wasted: Other = fentanyl 25 mcg. Total IV fluids: 33 mL. A TR Band was successful obtaining hemostatsis at the Right Radial artery insertion site. Post-op diagnosis: moderate to severe diagal stenosis/ medical management. Complications: none. Estimated blood loss: 5mL-10mL. Responsiveness - Normal response to verbal stimuli; alert and oriented, PERRLA. Airway - Unaffected, no intervention required; spontaneous ventilation. Circulation: W/N/L, pulses unchanged. Nausea/Vomiting: No. Procedure completed. Patient transferred by wheelchair to CPRU. Vital chart was stopped. Access Site Site: Right Radial artery Sheath Size: 6 Fr Hemostasis Method: TR Band Hemostasis Success: Successful Procedure Medications Start: 7:26 AM Stop: 7:26 AM Medication: Versed Amount: 1 mg Route: I.V. Start: 7:26 AM Stop: 7:26 AM Medication: Fentanyl Amount: 50 mcg Route: I.V. Start: 7:33 AM Stop: 7:33 AM Medication: Versed 1 mg and Fentanyl 25 mcg Amount: 1 Route: I.V. Start: 7:35 AM Stop: 7:35 AM Medication: Nitrogylcerin Amount: 200 mcg Route: I.A. Start: 7:38 AM Stop: 7:38 AM Medication: Heparin Amount: 5000 units Route: I.V. I, the attending physician, have reviewed and verified all procedure medications. Yes, all medications given per verbal order History/Risk Factors Hypertension: Yes Dyslipidemia: Yes Peripheral Arterial Disease (PAD): No Myocardial Infarction (WI): No Obesity: No Tobacco Use: Never Prior Interventions PCI: No CABG: No Valve Surgery: No Report Signatures Finalized by Dexter Hampton MD on 08/15/2022 07:58 PM
--- NOTE | 2022-08-05 07:25 | W.PM.OPSFHP ---
Same Day Surgery H&P Indication for Procedure/HPI DATE OF PROCEDURE: August 05, 2022 CHIEF COMPLAINT/INDICATIONFOR SURGICAL PROCEDURE: Chest pain/ abnormal stress test PREOP DIAGNOSIS: Chest pain/ abnormal stress test PLANNED PROCEDURE: Operation Date: 08/05/22 07:00 Proposed Procedures p [facility] 07262,R94.39, R07.9, Z82.49, I10(Left) - Dexter Hampton M.D Possible percutaneous coronary intervention 62-year-old woman with medical attention has been having on and off chest pain episodes and significant dyspnea on exertion. She is underwent stress test that showed ischemia in left circumflex artery territory. Plan for coronary angiogram with possible percutaneous coronary intervention. Had recent ear infection and on amoxicillin, WBC count is normal. Medications/Allergies* Home Medications Medication Instructions Recorded Confirmed Type ascorbic acid (vitamin C) 500 mg 500 mg PO DAILY@09/20/19 08/05/22 History capsule aspirin 81 mg tablet,delayed 81 mg PO DAILY@09/20/19 08/05/22 History release (Adult Low Dose Aspirin) cyclobenzaprine 10 mg tablet 10 mg PO BEDTIME PRN Pain 09/20/19 08/05/22 History ibuprofen 800 mg tablet 800 mg PO Q6H PRN Pain 09/20/19 08/05/22 History magnesium oxide 250 mg PO BID@09/20/19 08/05/22 History potassium chloride 10 mEq 10 meq PO BID 09/20/19 08/05/22 History tablet,extended release(part/cryst) simvastatin 40 mg tablet 40 mg PO DAILY@209909/20/19 08/05/22 History cholecalciferol (vitamin D3) 25 25 mcg PO DAILY@11/30/19 08/05/22 History mcg (1,000 unit) capsule citalopram 10 mg tablet 10 mg PO DAILY@06/09/20 08/05/22 History hydrochlorothiazide 25 mg tablet 25 mg PO DAILY PRN Blood Pressure 06/09/20 08/05/22 History eiibhhvtsqbr-yupnwell-AH-omega cap PO 06/03/21 08/01/22 History 3,6,9 #3 400 mcg capsule omeprazole 20 mg tablet,delayed 20 mg PO DAILY 06/10/22 08/05/22 History release Allergies/Adverse Reactions Allergy/AdvReac Type Severity Reaction Status Date / Time pseudoephedrine Allergy Unknown Unknown Verified 08/01/22 13:07 Current Medications: Generic Name Dose Route Start Last Admin Trade Name Freq PRN Reason Stop Dose Admin Sodium Chloride 1,000 mls @ 50 mls/hr 08/05/22 06:00 08/05/22 06:48 Sodium Chloride 0.9% IV 08/06/22 01:59 Not Given .Q20H ONE Pertinent History/Comorbid Conditions* Medical History (Updated 06/03/21 @ 16:56 by Chichi Mckay MD) Chest pain Dyslipidemia Family history of ischemic heart disease and other diseases of the circulatory system HTN (hypertension) SVT (supraventricular tachycardia) Surgical History (Updated 06/03/21 @ 16:56 by Chichi Mckay MD) H/O section Family History (Updated 11/30/19 @ 08:11 by Emi Dyer LPN) Father CAD (coronary artery disease) Father Cancer Social History Smoking and tobacco status: never smoked Alcohol intake: never Substance/Drug Use: never Pertinent Exam Findings alert, oriented x 3, clear to auscultation bilaterally and regular rate & rhythm Conscious Sedation Assessment PATIENT ASSESSED PRIOR TO SEDATION, WITH NO CHANGE NOTED: Yes AIRWAY EVAL/ANESTHESIA PLAN: normal airway, ASA III, Local Anesthesia, Risks, benefits & alternatives of sedation and/or procedure discussed and Patient agrees to continue as planned Recommendations Surgery/Procedure today (Left heart cath with possible percutaneous coronary intervention) Coding Level of Care Code Acute Code for Chg Fwd Diagnoses
--- NOTE | 2022-08-05 10:59 | PC.NURSE ---
1030: TR Band removed from patient right wrist. No drainage or hematoma noted. Cleaned around site with soap and water, covered with band-aid. Vitals stable, no c/o pain. Will continue to monitor. 1135: Discharge orders received. Dsg over puncture site to patients right wrist clean, dry, et intact. No drainage or hematoma noted. Vitals stable. Post cardiac cath education given to patient. Patient verbalized understanding of all teaching. IV removed. Follow-up appointment made with CORRY Beltrán. Patient discharged to home via wheelchair with spouse in private vehicle.
== END 2022-08-05 11:40 | disposition home or self-care (01) ==
PROVIDERS: PCP Family Medicine; Visit Provider Internal Medicine
DX: R94.39 Abnormal result of other cardiovascular function study (principal); R07.9 Chest pain, unspecified; R06.09 Other forms of dyspnea; Z79.82 Long term (current) use of aspirin; I10 Essential (primary) hypertension; E78.5 Hyperlipidemia, unspecified; I25.10 Atherosclerotic heart disease of native coronary artery without angina pectoris
CPT/HCPCS: 36415; 85025; 93458; 96361; 96365; 99152; 99153; C1769; C1887; C1894; J1644; J2250; J3010; J3490; J7030; Q0163; Q9967

== ENCOUNTER → 2022-08-12 09:40 | Outpatient (BNVA) | payer OTHER, SELFPAY | PROVIDERS: PCP Family Medicine; Visit Provider Nurse Practitioner Family | DX: I10 Essential (primary) hypertension (principal); I25.10 Atherosclerotic heart disease of native coronary artery without angina pectoris | CPT/HCPCS: 80048 ==

== ENCOUNTER 2023-07-26 16:23 | Outpatient (CLI) | payer OTHER, SELFPAY ==
--- NOTE | 2023-07-26 16:38 | XRR_ITS ---
NOTE: Report was unsigned for reason: Ordering provider was edited. Original Signature date and time was: 07/26/23 @ 1657 PROCEDURE INFORMATION: Exam: XR Lumbosacral Spine Exam date and time: 07/26/2023 4:57 PM Age: 63 years old Clinical indication: Low back pain; Patient HX: Difficulty with standing and sitting for 4 weeks and getting worse TECHNIQUE: Imaging protocol: Radiologic exam of the lumbosacral spine. Views: 4 or 5 views. Total images: 2 COMPARISON: CR XR lumbar spine f/e only [id number] 12/14/2017 12:08 PM FINDINGS: Bones/joints: L4-L5 Degenerative spondylolisthesis (grade 1) is seen with disc space height loss and degenerative changes in the facet joints. Vertebral body heights are maintained. L4-S1 Facet joint degenerative changes are present. Soft tissues: Unremarkable. Vasculature: Moderate atherosclerotic disease burden is evident. [facility] 4V [id number] IMPRESSION: 1. L4-L5 Degenerative spondylolisthesis (grade 1) is seen with disc space height loss and degenerative changes in the facet joints. Finding has slightly progressed since prior exam. 2. Degenerative changes as described above but no acute pathology detected.
== END 2023-07-26 16:24 | disposition home or self-care (01) ==
LOC: RAD 16:26
PROVIDERS: PCP Family Medicine; Visit Provider Family Medicine
DX: M54.42 Lumbago with sciatica, left side (principal); M43.16 Spondylolisthesis, lumbar region; M47.817 Spondylosis without myelopathy or radiculopathy, lumbosacral region
CPT/HCPCS: 72110

== ENCOUNTER 2024-01-27 15:43 | Outpatient (CLI) | payer OTHER, MEDICARE, SELFPAY | END 2024-01-27 15:44 | disposition home or self-care (01) | LOC: SLEEP 15:45 | PROVIDERS: PCP Family Medicine; Visit Provider Nurse Practitioner Family | DX: G47.33 Obstructive sleep apnea (adult) (pediatric) (principal); G47.36 Sleep related hypoventilation in conditions classified elsewhere; I25.10 Atherosclerotic heart disease of native coronary artery without angina pectoris; I10 Essential (primary) hypertension | CPT/HCPCS: G0399 ==

== ENCOUNTER → 2025-03-13 15:05 | Outpatient (BNVA) | payer MEDICARE, SELFPAY | PROVIDERS: PCP Family Medicine; Visit Provider Internal Medicine | DX: I25.10 Atherosclerotic heart disease of native coronary artery without angina pectoris (principal); I47.10 Supraventricular tachycardia, unspecified; I10 Essential (primary) hypertension; E78.5 Hyperlipidemia, unspecified | CPT/HCPCS: 99213 ==